=== PATIENT | male | born 1935 ===

== ENCOUNTER 2019-07-25 14:44 | Inpatient (IN) ==
[2019-07-25] MEDS ORDERED: diazePAM 5 MG TABLET PO PRN (17:58)
[2019-07-25] MEDS ORDERED: Acetaminophen 325 MG TABLET PO PRN (18:00)
[2019-07-25] MEDS ORDERED: Bisacodyl 10 MG RECTAL SUPPOSITORY RC PRN (18:02)
[2019-07-25] MEDS: *HR* OxyCODONE Immed Rel 5 MG TABLET PO PRN (18:46)
[2019-07-25] MEDS: Gabapentin 400 MG CAPSULE PO SCH (22:18)
[2019-07-25] MEDS: traZODone 50 MG TABLET PO PRN (22:18)
[2019-07-25] MEDS: Apixaban 5 MG TABLET PO SCH (22:18)
[2019-07-25] MEDS: Sennosides 8.6 MG TABLET PO SCH (22:29)
[2019-07-25] MEDS: Budesonide/Formoterol 80/4.5 1 PUFF INH IH SCH (22:33)
[2019-07-26] MEDS: *HR* OxyCODONE Immed Rel 5 MG TABLET PO PRN ×4 (00:35→21:33)
[2019-07-26 06:19] LABS: Basophils # 0.1 K/mcL (0.0-0.2); Basophils % 0.9 %; Eosinophils # 0.3 K/mcL (0.0-0.6); Eosinophils % 4.8 %; Hematocrit 29.7 % (37.5-50.1); Hemoglobin 10.1 g/dL (12.9-16.9); Immature Granulocytes % 1.8 % (0-4); Lymphocytes % 15.2 %; Mean Corpuscular Hemoglobin 29.7 pg (28.0-33.3); Mean Corpuscular Volume 87.4 fL (83.0-100.0); Mean Platelet Volume 8.3 fL (9.4-12.4); Monocytes # 0.9 K/mcL (0.0-1.3); Monocytes % 12.9 %; Neutrophils # 4.3 K/mcL (1.6-8.9); Platelet Count 378 K/mcL (140-400); Red Cell Distribution Width 13.2 % (11.5-14.5); Segmented Neutrophils % 64.4 %; White Blood Count 6.7 K/mcL (4.3-11.1)
[2019-07-26 06:46] LABS: BUN/Creatinine Ratio 14 (6-26); Blood Urea Nitrogen 8 mg/dL (8-23); Calcium 8.6 mg/dL (8.6-10.3); Carbon Dioxide 34 mEq/L (23-29); Chloride 98 mEq/L (98-107); Glucose 92 mg/dL (70-105); Osmolality,Calculated 282 (280-300); Potassium 4.2 mEq/L (3.5-5.1); Sodium 137 mEq/L (136-145); eGFR For African Americans > 60 (> 60); eGFR For Non-African Americans > 60 (> 60)
[2019-07-26] MEDS: Budesonide/Formoterol 80/4.5 1 PUFF INH IH SCH ×2 (08:48→22:13)
[2019-07-26] MEDS: Sennosides 8.6 MG TABLET PO SCH ×2 (09:27→20:53)
[2019-07-26] MEDS: Finasteride 5 MG TABLET PO SCH (09:27)
[2019-07-26] MEDS: Gabapentin 400 MG CAPSULE PO SCH ×4 (09:27→20:52)
[2019-07-26] MEDS: Apixaban 5 MG TABLET PO SCH ×2 (09:27→20:53)
[2019-07-26] MEDS: Multivit/Ca/Min/Fe/FA 1 TAB TABLET PO SCH (09:28)
[2019-07-26] MEDS: traZODone 50 MG TABLET PO PRN (23:48)
[2019-07-27] MEDS: *HR* OxyCODONE Immed Rel 5 MG TABLET PO PRN ×3 (08:15→20:41)
[2019-07-27] MEDS: Apixaban 5 MG TABLET PO SCH ×2 (08:18→20:40)
[2019-07-27] MEDS: Multivit/Ca/Min/Fe/FA 1 TAB TABLET PO SCH (08:19)
[2019-07-27] MEDS: Finasteride 5 MG TABLET PO SCH (08:19)
[2019-07-27] MEDS: Gabapentin 400 MG CAPSULE PO SCH ×4 (08:19→20:44)
[2019-07-27] MEDS: Sennosides 8.6 MG TABLET PO SCH ×2 (08:20→20:40)
[2019-07-27] MEDS: Budesonide/Formoterol 80/4.5 1 PUFF INH IH SCH ×2 (08:41→22:51)
[2019-07-27] MEDS ORDERED: Artificial Tears SOLN 15 ML BOTTLE BOTH EYES PRN (18:36)
[2019-07-27] MEDS: traZODone 50 MG TABLET PO PRN (23:34)
[2019-07-28] MEDS: *HR* OxyCODONE Immed Rel 5 MG TABLET PO PRN ×4 (03:18→22:15)
[2019-07-28] MEDS: Sennosides 8.6 MG TABLET PO SCH ×2 (09:30→20:41)
[2019-07-28] MEDS: Gabapentin 400 MG CAPSULE PO SCH ×4 (09:32→20:41)
[2019-07-28] MEDS: Apixaban 5 MG TABLET PO SCH ×2 (09:33→20:41)
[2019-07-28] MEDS: Finasteride 5 MG TABLET PO SCH (09:33)
[2019-07-28] MEDS: Multivit/Ca/Min/Fe/FA 1 TAB TABLET PO SCH (09:33)
[2019-07-28] MEDS ORDERED: diazePAM 5 MG TABLET PO PRN (10:49)
[2019-07-28] MEDS: Budesonide/Formoterol 80/4.5 1 PUFF INH IH SCH ×2 (10:53→20:52)
[2019-07-28] MEDS ORDERED: *HR* OxyCODONE Immed Rel 5 MG TABLET PO ONE (18:33)
[2019-07-29] MEDS: traZODone 50 MG TABLET PO PRN (01:02)
[2019-07-29] MEDS: *HR* OxyCODONE Immed Rel 5 MG TABLET PO PRN ×3 (05:47→18:12)
[2019-07-29] MEDS: Sennosides 8.6 MG TABLET PO SCH ×2 (08:56→21:00)
[2019-07-29] MEDS: Apixaban 5 MG TABLET PO SCH ×2 (08:56→21:01)
[2019-07-29] MEDS: Finasteride 5 MG TABLET PO SCH (08:57)
[2019-07-29] MEDS: Gabapentin 400 MG CAPSULE PO SCH ×4 (08:57→21:01)
[2019-07-29] MEDS: Multivit/Ca/Min/Fe/FA 1 TAB TABLET PO SCH (08:57)
[2019-07-29] MEDS: Budesonide/Formoterol 80/4.5 1 PUFF INH IH SCH ×2 (11:29→21:21)
[2019-07-30] MEDS: *HR* OxyCODONE Immed Rel 5 MG TABLET PO PRN ×4 (00:26→23:00)
[2019-07-30] MEDS: Gabapentin 400 MG CAPSULE PO SCH ×4 (09:00→20:16)
[2019-07-30] MEDS: Apixaban 5 MG TABLET PO SCH ×2 (09:00→20:16)
[2019-07-30] MEDS: Sennosides 8.6 MG TABLET PO SCH ×2 (09:01→20:17)
[2019-07-30] MEDS: Multivit/Ca/Min/Fe/FA 1 TAB TABLET PO SCH (09:01)
[2019-07-30] MEDS: Finasteride 5 MG TABLET PO SCH (09:01)
[2019-07-30] MEDS: Budesonide/Formoterol 80/4.5 1 PUFF INH IH SCH ×2 (10:26→21:00)
[2019-07-31] MEDS: *HR* OxyCODONE Immed Rel 5 MG TABLET PO PRN ×2 (05:05→17:13)
[2019-07-31 06:39] LABS: Hematocrit 32.9 % (37.5-50.1); Hemoglobin 11.2 g/dL (12.9-16.9); Mean Corpuscular Hemoglobin 29.2 pg (28.0-33.3); Mean Corpuscular Volume 85.9 fL (83.0-100.0); Mean Platelet Volume 8.5 fL (9.4-12.4); Platelet Count 555 K/mcL (140-400); Red Blood Count 3.83 M/mcL (4.19-5.50); Red Cell Distribution Width 13.1 % (11.5-14.5)
[2019-07-31 06:53] LABS: BUN/Creatinine Ratio 18 (6-26); Blood Urea Nitrogen 12 mg/dL (8-23); Carbon Dioxide 31 mEq/L (23-29); Chloride 95 mEq/L (98-107); Glucose 107 mg/dL (70-105); Osmolality,Calculated 274 (280-300); Sodium 132 mEq/L (136-145); eGFR For African Americans > 60 (> 60); eGFR For Non-African Americans > 60 (> 60)
[2019-07-31] MEDS: Multivit/Ca/Min/Fe/FA 1 TAB TABLET PO SCH (08:27)
[2019-07-31] MEDS: Apixaban 5 MG TABLET PO SCH ×2 (08:42→20:54)
[2019-07-31] MEDS: Gabapentin 400 MG CAPSULE PO SCH ×4 (08:43→20:54)
[2019-07-31] MEDS: Finasteride 5 MG TABLET PO SCH (08:43)
[2019-07-31] MEDS: Sennosides 8.6 MG TABLET PO SCH ×2 (08:44→20:55)
[2019-07-31] MEDS ORDERED: predniSONE 20 MG TABLET PO SCH (09:00)
[2019-07-31] MEDS: Budesonide/Formoterol 80/4.5 1 PUFF INH IH SCH ×2 (11:32→22:04)
[2019-07-31] MEDS: Nystatin POWDER 30 GM BOTTLE TP SCH ×2 (13:22→20:55)
[2019-07-31] MEDS: traZODone 50 MG TABLET PO PRN (20:55)
[2019-08-01 07:47] VITALS: BP 151/71
[2019-08-01] MEDS: Budesonide/Formoterol 80/4.5 1 PUFF INH IH SCH (09:09)
[2019-08-01] MEDS: Finasteride 5 MG TABLET PO SCH (12:46)
[2019-08-01] MEDS: Sennosides 8.6 MG TABLET PO SCH (12:47)
[2019-08-01] MEDS: Multivit/Ca/Min/Fe/FA 1 TAB TABLET PO SCH (12:47)
[2019-08-01] MEDS: Gabapentin 400 MG CAPSULE PO SCH ×2 (12:47→15:27)
[2019-08-01] MEDS: Nystatin POWDER 30 GM BOTTLE TP SCH (12:47)
[2019-08-01] MEDS: Apixaban 5 MG TABLET PO SCH (12:47)
[2019-08-01] MEDS: *HR* OxyCODONE Immed Rel 5 MG TABLET PO PRN (12:53)
[2019-08-01] MEDS ORDERED: predniSONE 10 MG TABLET PO SCH (14:45)
[2019-08-01] MEDS ORDERED: Sucralfate 1 GM TABLET PO SCH (16:30)
== END 2019-08-01 16:30 | disposition home health service (06) | DRG 949 ==
LOC: PREOBSVTOIN 16:38 → INPPIK 16:52
PROVIDERS: ADMIT Family Medicine; ATTEND Family Medicine